=== PATIENT | female | born 1975 | race Caucasian/White ===

== ENCOUNTER 2024-03-11 14:03 | Observation (INO) | payer SELFPAY ==
[~2024-03-11] VITALS: Ht 147.3 cm; Wt 77.2 kg
[~2024-03-11 14:03] MED LIST: NORCO 325 MG-51 TAB PO; PREDNISONE20 MG PO
[2024-03-11 15:12] LABS: BASO % 0.2 % (0.0-2.0); EOS % 0.1 % (0.0-4.0); GRAN % 83.9 % (42.2-75.2); HEMATOCRIT 45.2 % (37.0-47.0); HEMOGLOBIN 15.7 g/dl (12.5-16.0); LYMPH # 1.8 K/mm3 (1.2-3.4); LYMPH % 12.5 % (20.0-51.0); MEAN CELL VOLUME 92 fl (80.0-100.0); MEAN CORPUSCULAR HEMOGLOBIN 32 pg (27-31); MEAN CORPUSCULAR HGB CONC 35 g/dl (33.0-37.0); MEAN PLATELET VOLUME 11.3 fl (7.4-10.4); MONO # 0.4 K/mm3 (0.1-0.6); MONO % 2.9 % (1.7-9.3); PLATELET COUNT 327 K/mm3 (130-400); RED BLOOD COUNT 4.91 M/mm3 (4.10-5.30); REDCELL DISTRIBUTION WIDTH-CV 11.9 % (11.5-14.5)
[2024-03-11] MEDS ORDERED: NS 1,000 ML IV ONE (15:15)
[2024-03-11] MEDS ORDERED: Ketorolac 30 MG/ML VIAL IV ONE (15:15)
[2024-03-11] MEDS ORDERED: Ondansetron 4 MG/2 ML VIAL IV ONE (15:15)
[2024-03-11 15:32] LABS: BILIRUBIN,TOTAL 0.6 mg/dL (0.2-1.2); CREATININE, serum 0.84 mg/dL (0.57-1.11); POTASSIUM 3.7 mEq/L (3.5-4.5); TOTAL PROTEIN 8.1 g/dl (6.2-8.1)
[2024-03-11 16:29] LABS: COLLECTION METHOD CLEAN CATCH
[2024-03-11 16:36] LABS: PH 8.5 (5.0-8.5); URINE APPEARANCE CLEAR (CLEAR/HAZY); URINE BLOOD 2+ (NEGATIVE); URINE COLOR Dark Yellow (YELLOW); URINE GLUCOSE NEGATIVE (NEGATIVE); URINE KETONE 2+ (NEGATIVE); URINE NITRATE NEGATIVE (NEGATIVE); URINE PROTEIN(semi-quant) 2+ (NEGATIVE)
[2024-03-11 18:00] VITALS: BP_SYST 140
[2024-03-11] MEDS ORDERED: NS 1,000 ML IV SCH (18:00)
[2024-03-11] MEDS ORDERED: Ondansetron 4 MG/2 ML VIAL IV PRN (18:00)
[2024-03-11] MEDS ORDERED: Morphine 4 MG/ML VIAL IV PRN (18:00)
[2024-03-11 19:57] VITALS: BP 147/81; PULSE 68; TEMP 99.3
[2024-03-11 20:13] VITALS: BP_SYST 147
[2024-03-11 23:52] VITALS: BP 129/84; PULSE 74; TEMP 98.5
[2024-03-12] VITALS (11 sets, daily range): BP systolic 118–141; BP diastolic 75–83; PULSE 79–86; TEMP 98.3–99.1
--- NOTE | 2024-03-12 06:00 | NUR ---
Patient had an uneventful night. Denied pain/nausea/shortness of breath. VS remained stable-max temp 99.0. Has been NPO since 0000. NS@125ml/hr infusing to right forearm IV without difficulty. Denies current questions/concerns. Call light in reach. Will monitor.
--- NOTE | 2024-03-12 07:50 | NUR ---
patient alert and oriented x4. reports pain to right upper quadrant and under right breast rating it 7/10 and nausea. patient fluids infusing per emar. family at bedside. call light within reach. bed at lowest position.
[2024-03-12 08:02] LABS: HEMATOCRIT 37.8 % (37.0-47.0); MEAN CELL VOLUME 96 fl (80.0-100.0); MEAN CORPUSCULAR HEMOGLOBIN 31 pg (27-31); MEAN CORPUSCULAR HGB CONC 32 g/dl (33.0-37.0); MEAN PLATELET VOLUME 11.2 fl (7.4-10.4); PLATELET COUNT 257 K/mm3 (130-400); RED BLOOD COUNT 3.93 M/mm3 (4.10-5.30); REDCELL DISTRIBUTION WIDTH-CV 12.3 % (11.5-14.5)
[2024-03-12 08:06] LABS: HEMOGLOBIN 12.1 g/dl (12.5-16.0)
[2024-03-12 08:15] LABS: ALBUMIN 2.9 g/dL (3.5-5.0); BILIRUBIN,TOTAL 0.5 mg/dL (0.2-1.2); CREATININE, serum 0.81 mg/dL (0.57-1.11); POTASSIUM 3.6 mEq/L (3.5-4.5); TOTAL PROTEIN 5.8 g/dl (6.2-8.1)
[2024-03-12 08:23] LABS: BAND 4 % (0-10); EOSINOPHIL 2 % (0-4); LYMPHOCYTE 27 % (20.0-51.0); NEUTROPHILS 62 % (42.0-75.2); PLATELET ESTIMATE NORMAL (NORMAL)
[2024-03-12] MEDS ORDERED: Influenza Virus Vaccine, Trivalent '24-25 0.5 ML SYRINGE IM SCH (09:00)
[2024-03-12] MEDS ORDERED: Indocyanine Green 12.5 MG in Water For Injection,Sterile 2.5 ML IV SCH (09:00)
--- NOTE | 2024-03-12 09:52 | NUR ---
drafting layout worker met with patient, her Raheel (P# [phone]), patient's daughter Manju (P# [phone]) and daughter's friend to discuss discharge planning. Patient lives in [place] with her and daughter. Patient does not have a PCP currently and does not have insurance. SW explained the [facility] and provided information on that clinic. Pharmacy is [facility]. SW discussed if they were able to afford medications and patient explained they were going through a financial hardship with her 's medical concerns but her daughter and explained they would be able to afford the medications at this time. Patient wanted to complete a DPOA-HC while in the hospital. SAUL and SAUL Valdez witnessed patient's signature after patient appointed her daughter, Manju as primary, Thomas (son) as secondary and Raheel as the third agent. SW made copies, placed copy on chart and provided original and copies to patient and her . No DME at home, patient reports to be independent with ADLS. Patient has a form of transportation for appointments and work. Patient would like to return home at time of discharge. SW discussed [employer] and provided information on this service. Patient did not feel at this time that she would need this service but would keep it in mind. SAUL contacted financial counselor, Ewa, via email and explained patient is needing assistance with the financial assistance application. Discharge plan: Home
--- NOTE | 2024-03-12 11:39 | NUR ---
D: Inspector Receiving stopped by room on rounds. A: Pt was resting and content with in the room. Pt has no needs right now. P: Inspector Receiving informed pt that if she needed anything from the hunting sales associate area to let her nurse know. Inspector Receiving will follow up as needed.
[2024-03-12] MEDS ORDERED: LR 1,000 ML IV SCH (13:00)
[2024-03-12] MEDS ORDERED: Topical Skin Adhesive 1 EACH (1 ML) TOP ONE (16:30)
[2024-03-12] MEDS ORDERED: Rocuronium 50 MG/5 ML Multi-Dose VIAL ONE (16:40)
[2024-03-12] MEDS ORDERED: fentaNYL 50 MCG/ML 5 ML VIAL ONE (16:40)
[2024-03-12] MEDS ORDERED: Lidocaine PF 2% (20 MG/ML) 5 ML VIAL ONE (16:41)
[2024-03-12] MEDS ORDERED: Ondansetron 4 MG/2 ML VIAL ONE (17:39)
[2024-03-12] MEDS ORDERED: Ketorolac 30 MG/ML VIAL ONE (17:39)
[2024-03-12] MEDS ORDERED: dexAMETHasone 10 MG/ML VIAL ONE (17:39)
[2024-03-12] MEDS ORDERED: Ondansetron 4 MG/2 ML VIAL IV PRN (17:45)
[2024-03-12] MEDS ORDERED: Morphine 2 MG/1 ML VIAL [PACU/SDC ONLY] IV PRN (17:45)
[2024-03-12] MEDS ORDERED: HYDROmorphone 1 MG/1 ML SYRINGE [PACU/SDC ONLY] IV PRN (17:45)
[2024-03-12] MEDS ORDERED: Meperidine 50 MG/ML 1 ML VIAL IV PRN (17:45)
[2024-03-12] MEDS ORDERED: fentaNYL 50 MCG/ML 1 ML SYRINGE/VIAL [PACU/SDC ONLY] IV PRN (17:45)
[2024-03-12] MEDS ORDERED: droPERidol 2.5 MG/ML 2 ML VIAL IV PRN (17:45)
[2024-03-12] MEDS ORDERED: Neostigmine 1 MG/ML 10 ML Multi-Dose Vial ONE (18:19)
[2024-03-12] MEDS ORDERED: Glycopyrrolate 0.2 MG/ML 1 ML VIAL ONE (18:19)
[2024-03-12] MEDS ORDERED: NORCO 325 MG-51 TAB PO (18:38)
[2024-03-12] MEDS ORDERED: MOTRIN 600600 MG/TAB PO (18:38)
[2024-03-12] MEDS ORDERED: AMOXICILLIN 8751 TAB PO (18:38)
[2024-03-12] MEDS ORDERED: Amoxicillin/Clavulanate K+ 875/125 MG TAB PO SCH (18:39)
[2024-03-12] MEDS ORDERED: Ibuprofen 600 MG TAB PO PRN (18:45)
[2024-03-13] VITALS: BP 136/81; PULSE 72; TEMP 98.9
[2024-03-13 01:28] VITALS: BP_SYST 136
[2024-03-13 03:46] VITALS: BP 131/81; PULSE 82; TEMP 98.5
[2024-03-13 05:00] VITALS: BP_SYST 131
--- NOTE | 2024-03-13 06:54 | NUR ---
THE PATIENT RESTED WELL OVERNIGHT. THE PATIENT REPORTED 1/10 ABD PAIN, BUT DENIED THE NEED FOR INTERVENTIONS. VITAL SIGNS STABLE. THE PATIENT'S SPOUSE STAYED THE NIGHT. NO NEEDS OR CONCERNS DURING THIS TIME. THE PATIENT HAS BEEN UP AND AMBULATING WITH A STEADY GAIT, VOIDING WIHOUT DIFFICULTY AND TOLERATING FLUIDS AND FOOD. CALL LIGHT WITHIN REACH WELL HER PERSONAL BELONGINGS. BED IN THE LOW POSITION.
[2024-03-13 07:48] VITALS: BP 148/83; PULSE 76; TEMP 99.8
[2024-03-13 08:06] VITALS: BP_SYST 148
--- NOTE | 2024-03-13 08:08 | NUR ---
PT RESTING IN BED, ALERT AND ORIENTEDX4. ASSESSED PT. RATES PAIN 2/10 IN THE ABDOMEN. LAP SITES INTACT. GAVE MORNING ANTIBIOTIC. NO OTHER COMPLAINTS AT THIS TIME. PT HAS DISCHARGE ORDERS.
--- NOTE | 2024-03-13 09:15 | NUR ---
PT HAS DISCHARGE ORDERS. WENT OVER DISCHARGE PAPERWORK WITH PT AND FAMILY. TOOK OUT PT IV. THIS NURSE ESCORTED PT OUT IN WHEEL CHAIR TO DAUGHTERS CAR.
== END 2024-03-13 09:00 | disposition home or self-care (01) ==
LOC: COL.ER 14:03 → SURG 17:14
PROVIDERS: Physician Assistant; ADMIT Surgery
DX: K80.00 Calculus of gallbladder with acute cholecystitis without obstruction (principal)
CPT/HCPCS: G0008; G0378; J1100; J1885; J2270; J2405; J2543; J2704; J2710; J3010; J7030